=== PATIENT | male | born 1980 | race African-American/Black ===

== ENCOUNTER 2019-06-01 09:26 | Inpatient (IN) | payer BC ==
[~2019-06-01] VITALS: Ht 182.9 cm; Wt 104.3 kg
[2019-06-01] MEDS ORDERED: MORPHINE SULFATE INJ 4 MG/ML INJ 1ML ONE (10:06)
[2019-06-01 10:10] LABS: HEMATOCRIT 49.2 % (38.2-49.6); MEAN CORPUSCULAR HEMOGLOBIN 25.9 pg (28-32); MEAN CORPUSCULAR HGB CONC 32.5 g/dL (31-35); MEAN CORPUSCULAR VOLUME 79.6 fL (81-99); PLATELET COUNT 242 x10e3/uL (140-360); RED BLOOD COUNT 6.18 x10e6/uL (4.3-5.7); RED CELL DISTRIBUTION WIDTH 15.5 % (11.7-14.4)
[2019-06-01] MEDS ORDERED: ONDANSETRON HCL INJ 2MG/ML 2ML 2 MG/ML VIAL IV ONE (10:30)
[2019-06-01] MEDS ORDERED: HYDRALAZINE HCL 20 MG/ML VIAL IV ONE ×2 (10:30→12:30)
[2019-06-01] MEDS ORDERED: MORPHINE SULFATE INJ 4 MG/ML INJ 1ML IV ONE (10:30)
[2019-06-01 10:40] LABS: EOSINOPHILS % (MANUAL) 2 % (0-7); LYMPHOCYTES % (MANUAL) 11 % (19-48); MONOCYTES % (MANUAL) 5 % (3.4-9.0); NEUTROPHILS % (MANUAL) 82 % (40-74)
[2019-06-01 10:43] LABS: ANISOCYTOSIS SLIGHT; POIKILOCYTOSIS SLIGHT
[2019-06-01 10:44] LABS: PLATELET ESTIMATE ADEQUATE; PLATELET MORPHOLOGY COMMENT FEW LARGE; RBC MORPHOLOGY COMMENT ABNORMAL
[2019-06-01 10:45] LABS: MICROCYTOSIS SLIGHT
--- NOTE | 2019-06-01 10:52 | Diagnostic Imaging Report ---
Exam: Head CT without contrast History: Headache Comparison studies: None Technique: Axial images were obtained from the skull base to the vertex. Coronal and sagittal images reconstructed from the axial data. Dose modulation, iterative reconstruction, and/or weight based adjustment of the mA/kV was utilized to reduce the radiation dose to as low as reasonably achievable. Radiation dose: Total DLP: 832 mGy*cm. Estimated effective dose: DLP x 0.015 Intravenous contrast: None Findings: Scalp: No abnormalities. Bones: No fractures, blastic or lytic lesions. The anterior margin of the frontal calvarium of anteroinferior frontal scalp outside imaged of view. Brain sulci: Appropriate for age. Ventricles: Normal in size and configuration. No hydrocephalus. Extra-axial spaces: No masses, no fluid collection. Parenchyma: No abnormal densities. No masses, hemorrhage, acute or chronic vascular insults. Sellar/suprasellar region: No abnormalities. Craniocervical junction: Patent foramen magnum. No Chiari one malformation. Middle ear and mastoids: Clear. Included paranasal sinuses: Clear. IMPRESSION: No acute abnormalities. Signed by: Dr. Norman Smith M.D. on 06/01/2019 10:49 AM
--- NOTE | 2019-06-01 11:02 | NUR ---
notified ultrasound to have pt call his van
[2019-06-01 11:29] LABS: ALBUMIN 4.2 g/dL (3.5-5.0); ALBUMIN/GLOBULIN RATIO 1.2 (0.8-2.0); ANION GAP 14.4 mmol/L (8-16); CALCIUM 9.5 mg/dL (8.4-10.2); CREATININE, SERUM 3.08 mg/dL (0.72-1.25); POTASSIUM 4.4 mmol/L (3.5-5.1)
[2019-06-01] MEDS ORDERED: ONDANSETRON HCL INJ 2MG/ML 2ML 2 MG/ML VIAL IV PRN (12:00)
[2019-06-01] MEDS ORDERED: HYDRALAZINE HCL 20 MG/ML VIAL IV PRN (12:00)
[2019-06-01] MEDS ORDERED: SODIUM CHLORIDE FLUSH 10 ML SYR INJ PRN (12:00)
[2019-06-01] MEDS ORDERED: CLONIDINE HCL 0.2 MG/24 HR 1 EA PATCH TOP ONE (12:00)
--- OUTSIDE RECORDS SUMMARY | 2019-06-01 12:22 | XMS REPORT ---
[facility] Unknown Phone Unavailable Care Team Providers Care Ammonium Sulfate Operator Name Role Phone Adri BARBA Unavailable Unavailable Problems This patient has no known problems. Allergies, Adverse Reactions, Alerts This patient has no known allergies or adverse reactions. Medications This patient has no known medications. Results Test Description Test Time Test Comments Text Results Atomic Results Result Comments CT BRAIN WO 2019-06-01 10:45:00 [place] [address] Patient Name: ZOEY DAVISON MR #: [id number] : 1980 Age/Sex: 38/M Req #: [id number] Adm Physician: Ordered by: GORDY BARBA MD Report #: [id number] Location: ER Room/Bed: Procedure: [id number] CT/CT BRAIN WO Exam Date: 06/01/19 Exam Time: 1015 REPORT STATUS: Signed Exam: Head CT without contrast History: Headache Comp arison studies: None Technique: Axial images were obtained from the skull base to the vertex. Coronal and sagittal images reconstructed from the axial data. Dose modulation, iterative reconstruction, and/or weight based adjustment of the mA/kV was utilized to reduce the radiation dose to as low as reasonably achievable. Radiation dose: Total DLP: 832 mGy*cm. Estimated effective dose: DLP x 0.015 Intravenous contrast: None Findings: Scalp: No abnormalities. Bones: No fractures, blastic or lytic lesions. The anterior margin of the frontal calvarium of anteroinferior frontal scalp outside imaged of view. Brain sulci: Appropriate for age. Ventricles: Normal in size and configuration. No hydrocephalus. Extra-axial spaces: No masses, no fluid collection. Parenchyma: No abnormal densities. No masses, hemorrhage, acute or chronic vascular insults. Sellar/suprasellar region: No abnormalities. Craniocervical junction: Patent foramen magnum. No Chiari one malformation. Middle ear and mastoids: Clear. Included paranasal sinuses: Clear. IMPRESSION: No acute abnormalities. Signed by: Dr. Jules Smith M.D. on 06/01/2019 10:49 AM Dictated By: JULES SMITH MD [id number] Transcribed By: CECY on 06/01/19 1049 COPY TO: GORDY BARBA MD
--- NOTE | 2019-06-01 12:46 | Diagnostic Imaging Report ---
EXAMINATION: Renal Doppler ultrasound. CLINICAL HISTORY :Hypertension COMPARISON: None. TECHNIQUE: Grayscale and color Doppler evaluation of the kidneys and bladder was performed in transverse and longitudinal planes. Doppler interrogation of the main, hilar, segmental and arcuate renal arteries bilaterally as well as evaluation of the aorta were performed. DISCUSSION: RIGHT KIDNEY: The right kidney measures 10.2 cm in length and shows increased echogenicity. The right renal cortex measures 2.1 cm. No hydronephrosis, shadowing calculi or solid mass lesions. . Right main renal artery PSV is 46.9 cm/sec. Highest right segmental artery PSV is 24.0 cm/sec. Arterial waveforms are normal. The right renal artery PSV/aortic PSV ratio is 0.7. LEFT KIDNEY: The left kidney measures 9.7 cm in length and shows increased echogenicity. The left renal cortex measures 2.0 cm. No hydronephrosis, shadowing calculi or solid mass lesions. Left main renal artery PSV is 46.2 cm/sec. Highest left segmental artery PSV is 30.4cm/sec. Arterial waveforms are normal. The left renal artery PSV/aortic PSV ratio is 0.7. Abdominal aortic PSV is 63.9 cm/sec. BLADDER: No mass or calculi. Bilateral ureteral jets visualized. Prevoid volume estimate of 2 69-cc. The prostate appears normal with volume estimate of 20.7 cc. IMPRESSION: Bilateral echogenic kidneys consistent with medical renal disease. Renal arterial Doppler measurements as above. No evidence of hemodynamically significant renal artery stenosis. Signed by: Satnam Puentes MD on 06/01/2019 12:42 PM
[2019-06-01] MEDS ORDERED: ACETAMINOPHEN 325 MG TAB ONE (12:56)
[2019-06-01] MEDS ORDERED: ACETAMINOPHEN 325 MG TAB PO ONE (13:00)
[2019-06-01] MEDS ORDERED: MORPHINE SULFATE INJ 4 MG/ML INJ 1ML IV PRN (13:00)
[2019-06-01] MEDS ORDERED: LABETALOL HCL 5 MG/ML 20ML VIAL IV ONE (13:30)
--- NOTE | 2019-06-01 14:14 | NUR ---
pt updated on pending admit
[2019-06-01] MEDS ORDERED: NICARDIPINE 20MG/200ML PREMIX 200 ML IV PRN (15:15)
[2019-06-01 16:15] LABS: BILIRUBIN,URINE NEGATIVE (NEGATIVE); CLARITY,URINE SL CLOUDY (CLEAR); COLOR,URINE YELLOW (YELLOW); KETONES,URINE NEGATIVE (NEGATIVE); LEUKOCYTE ESTERASE ,URINE NEGATIVE (NEGATIVE); NITRITE,URINE NEGATIVE (NEGATIVE); PROTEIN,URINE DIPSTICK 2+ (NEGATIVE); URINE UROBILINOGEN 0.2 mg/dL (0.2 - 1)
[2019-06-01 16:20] LABS: AMPHETAMINES SCREEN,URINE NEGATIVE (NEGATIVE); BENZODIAZEPINES SCREEN,URINE NEGATIVE (NEGATIVE); PHENCYCLIDINE SCREEN,URINE NEGATIVE (NEGATIVE)
[2019-06-01 16:29] LABS: BACTERIA,URINE RARE /HPF; EPITHELIAL CELLS,URINE FEW /LPF; RBC,URINE 0-5 /HPF (0-5); WBC,URINE (MAN) 0-5 /HPF (0-5)
--- NOTE | 2019-06-01 16:47 | NUR ---
pt's s.o. just entered the room and stated " i just talked to the er and i'm taking him home." dr. goldberg has spoke wtih the pt at length re not leaving, but pt/spouse both are adamant about leaving at this time.
--- NOTE | 2019-06-01 17:00 | NUR ---
Patient at nurses station dmeanding to take patient home, states his blood pressure is always this high and that she can bring down his blood pressure at home. Patient and spoken to by Dr Carranza in length and notified them about isks of going home with these blood pressures. Included hemmoragic stroke, and permanat disabilty due to bleeding in the brain due to stroke level blood pressures. Patient and states they understand risk including and continue to demand that patient goes home. Patient signed AMA paperwork despite this RN, Mara AVELAR and Dr Carranza explaining risks in depth.
--- NOTE | 2019-06-01 17:01 | NUR ---
md called pts pcp and spoke regarding concern to stay in ic[facility]. pt agreed. pts spouse showed up and stated she was refusing him to stay in pt at hospital. spoke with her at great length as well as multiple nurses and continues waving her hand across left to right stating she knows he has high blood pressure and hospitals do nothing for him and she can take care of him at home. pt has [address] lino. spoke with pt extensively as well. pt and family insist on ama. aware of , stroke, deterioration
--- NOTE | 2019-06-01 17:07 | NUR ---
iv dc'd intact and pt has left p signing the ama
== END 2019-06-01 17:07 | disposition left against medical advice (07) | DRG 305 ==
LOC: ER 09:26 → ERHOLD 12:20
PROVIDERS: ADMIT Family Medicine; ATTEND Family Medicine
DX: I16.1 Hypertensive emergency (principal); I10 Essential (primary) hypertension; Z87.891 Personal history of nicotine dependence; Z82.49 Family history of ischemic heart disease and other diseases of the circulatory system
CPT/HCPCS: 36415; 70450; 76770; 80053; 80307; 81001; 83880; 84484; 85007; 85027; 93005; 93976; 99284; J0360; J2270; J2405

== ENCOUNTER → 2024-03-02 | Outpatient (REF) | payer MEDICARE | LOC: CT 11:22 | PROVIDERS: ATTEND Internal Medicine | DX: R41.82 Altered mental status, unspecified (principal) | CPT/HCPCS: 70450 ==